=== PATIENT | male | born 1980 | race Caucasian/White ===

== ENCOUNTER 2017-08-24 21:18 | Emergency (ER) | payer OTHER | END 2017-08-24 22:36 | disposition home or self-care (01) | LOC: M ED 21:18 | DX: S31.21XA Laceration without foreign body of penis, initial encounter (principal); X58.XXXA Exposure to other specified factors, initial encounter; Y92.9 Unspecified place or not applicable; Y93.9 Activity, unspecified; Y99.9 Unspecified external cause status; Z72.0 Tobacco use | CPT/HCPCS: 99282 ==